=== PATIENT | male | born 1960 | race Caucasian/White ===

== ENCOUNTER 2017-03-04 16:27 | Inpatient (IN) | payer MEDICARE ==
[~2017-03-04] VITALS: Ht 167.6 cm; Wt 94.4 kg
[~2017-03-04 16:27] MED LIST: CLON2TAB3 PO; METF1000 PO; PARO10TA26 PO
[2017-03-04] MEDS ORDERED: morphine 4 MG/ML VIAL IV STA (17:26)
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
[2017-03-04 17:37] LABS: ADD SCAN DIFF NO
[2017-03-04 17:40] LABS: BASOPHILS % 0.2 % (0.0-2.0); EOSINOPHILS % 0.1 % (0.0-7.0); HEMATOCRIT 51.6 % (42.0-52.0); HEMOGLOBIN 16.9 g/dl (14.0-18.0); LYMPHOCYTES # 1.5 10^3/ul (0.8-2.9); LYMPHOCYTES % 13.7 % (15.0-51.0); MEAN CORPUSCULAR HEMOGLOBIN 28.7 pg (29.0-33.0); MEAN CORPUSCULAR HGB CONC 32.8 g/dl (32.0-37.0); MEAN CORPUSCULAR VOLUME 87.8 fl (82.0-101.0); MEAN PLATELET VOLUME 9.7 fl (7.4-10.4); MONOCYTE # 1.1 10^3/ul (0.3-0.9); MONOCYTES % 9.9 % (0.0-11.0); NEUTROPHIL # 8.2 10^3/ul (1.6-7.5); NEUTROPHILS % 75.4 % (39.0-77.0); PLATELET COUNT 368 10^3/UL (140-415); RED BLOOD COUNT 5.88 10^6/ul (4.70-6.10); RED CELL DISTRIBUTION WIDTH 15.4 % (11.5-14.5); WHITE BLOOD COUNT 10.9 10^3/ul (4.8-10.8)
[2017-03-04 17:55] LABS: INR 0.92; PROTIME 12.4 Sec (12.2-14.2)
[2017-03-04 17:56] LABS: PARTIAL THROMBOPLASTIN TIME 28.2 Sec (25.0-35.0)
[2017-03-04] MEDS ORDERED: ACETAMINOPHEN 325 MG TAB PO PRN (18:00)
[2017-03-04] MEDS ORDERED: ONDANSETRON 4 MG INJ IV PRN (18:00)
[2017-03-04 18:04] LABS: ALBUMIN/GLOBULIN RATIO 1.42; BILIRUBIN,INDIRECT 0.5 mg/dl (0-1.1); BILIRUBIN,TOTAL 0.5 mg/dl (0.2-1.3); CALCIUM 9.5 mg/dl (8.4-10.2); CREATININE 1.04 mg/dl (0.61-1.24); POTASSIUM 3.6 mmol/L (3.5-5.1); TOTAL PROTEIN 8.5 g/dl (6.1-8.1)
--- NOTE | 2017-03-04 18:10 | RADRPT ---
PROCEDURE: XR Chest. CLINICAL INDICATION: Chest pain. TECHNIQUE: Single frontal view of the chest was obtained. COMPARISON: Chest x-ray 05/18/2016. FINDINGS: The soft tissues are normal. There are degenerative osteophytes in the thoracic spine. The left ve ntricle is mildly enlarged. The cardiomediastinal silhouette and hilar structures are normal. The p ulmonary vasculature is normal. There is a left-sided aorta. There is a suboptimal inspiration with compressive atelectasis in the bases of the lungs. The left costophrenic angle is obscured. The r ight costophrenic angle is normal. IMPRESSION: 1. Left ventricular enlargement. 2. Spondylosis of the thoracic spine. 3. Suboptimal inspiration with compressive atelectasis in the bases of the lungs. RPTAT:AAJJ Physician Theresa Date Time Electronically viewed and signed by Physician Theresa on 03/04/2017 18:10 /
[2017-03-04 18:16] LABS: TROPONIN-I 0.016 ng/ml (0.00-0.12)
[2017-03-04] MEDS ORDERED: ASPIRIN 325 MG TAB PO STA (18:16)
[2017-03-04] MEDS ORDERED: NITROGLYCERIN 2% 1 GM OINT PKT TD STA (18:16)
[2017-03-04 18:30] VITALS: TEMP 97.7
[2017-03-04 18:34] LABS: THYROID STIMULATING HORMONE 0.836 MIU/L (0.465-4.680)
[2017-03-04] MEDS ORDERED: clonAZEPAM 0.5 MG TAB PO ONE (19:00)
[2017-03-04 20:03] VITALS: BP 165/92; RESP 18
[2017-03-04 20:18] VITALS: PULSE 82
[2017-03-04 20:30] VITALS: Ht 167.6 cm; Wt 94.4 kg
--- NOTE | 2017-03-04 20:46 | HP ---
DATE OF ADMISSION: 03/04/2017 CHIEF COMPLAINT: Left arm pain and feeling very sick. HISTORY OF PRESENT ILLNESS: This 57-year-old patient with diabetes, hypertension, hypercholesterolemia and bipolar as well as history of chronic pain from C-spine disk disease and left humeral fracture presented in the office with increasingly severe left arm pain over the past 2 to 3 days so that his usual oxycodone was not controlling the pain. The patient also reports that he was more weak, short of breath, sweaty and tremulous. However, patient attributed the symptoms to the fact that he had an episode of diarrhea with some nausea and vomiting about 3 to 4 days ago. He also attributed the left arm pain to the fact that we discontinued Dilaudid last week to see if patient' s pain can be controlled on oxycodone alone. In the office, the patient's blood pressure was at 185/105, and he had an abnormal EKG with T-wave inversion in the anterolateral leads, and the patient was sent to [facility] for possible admit for rule out myocardial infarction. PAST MEDICAL HISTORY: 1. Bipolar. 2. General anxiety disorder. 3. Diabetes. 4. Hypertension. 5. History of alcoholism. 6. Deafness from recent trauma. 7. Cervical spine degenerative disk disease. 8. Lumbar spine degenerative disk disease. 9. Left humeral fractures x2 one year apart. 10. Hypothyroidism 11. Hypogonadism ALLERGIES: NKDA. MEDICATIONS ON ADMISSION: Include 1. Metformin 1000 mg p.o. b.i.d. 2. Glimepiride 1mg p.o. b.i.d. 3. Clonazepam 2 mg p.o. t.i.d. 4. [place] 300 mg p.o. b.i.d. 5. Paroxetine 20 mg p.o. daily. 6. Oxycodone 30 mg 2 p.o. b.i.d. 7. Clonidine 0.1 mg p.o. b.i.d. 8. Synthroid 25mcg p.o. q.d. 9. Haloperidol 1mg p.o. b.i.d. 10. Depotestosterone 200mg injection q. month. FAMILY HISTORY: Noncontributory. SOCIAL HISTORY: The patient is deaf and lives alone in an assisted living facility. He is able to drive. PHYSICAL EXAMINATION: GENERAL: Well-developed, well-nourished, tremulous male, mildly diaphoretic. VITAL SIGNS: Temperature on arrival in ER was 98.2, blood pressure 182/94, pulse 100, respiration rate 18, O2 saturation 96% to 100% on room. HEENT: Pupils equally round, reactive to light. Anicteric sclerae. Oropharynx clear. NECK: No jugular venous distention, no nodes, no goiter. LUNGS: Clear to auscultation. CARDIAC: Regular rate and rhythm. Normal S1, S2. ABDOMEN: Active bowel sounds. Soft, nondistended, nontender. EXTREMITIES: No clubbing, cyanosis or edema. Left arm with decreased range of motion at the shoulder. LABORATORY DATA: WBC 10.9, hemoglobin 16.9, hematocrit 51.6, platelet count 368 ,000. Sodium 136, potassium 3.6, BUN 27, creatinine 1.04, glucose 280,000. ProBNP is 878. Total protein 8.5, albumin 5.5, globulin 3.5. Troponin is 0.016. IMAGING: Chest x-ray shows left ventricular enlargement, spondylosis of thoracic spine. There is suboptimal inspiration with compressive atelectasis in the bases of the lungs. ELECTROCARDIOGRAM: Sinus tachycardia with a ventricular rate of 108, right ventricular hypertrophy, nonspecific T-wave changes. No acute ST segment elevation or depression. ASSESSMENT AND PLAN: 1. Left arm pain with abnormal electrocardiogram. Especially with the increased blood pressure and tachycardia and elevated proBNP, will admit patient for rule out SD protocol and obtain echocardiogram to check for possible heart failure. I will also consult Cardiology for further workup. 2. Other problems stable. Continue medication for diabetes and bipolar and chronic pain. Dictated By: LEIGHTON SHETH MD DP/NYDIA Conf#: [id number] DID#: [id number] MTDD
[2017-03-04] MEDS: morphine 2 MG INJ IV PRN (23:00)
[2017-03-04] MEDS ORDERED: GLUCOSE GEL 15 GRAM TUBE PO PRN ×2 (23:30)
[2017-03-04] MEDS ORDERED: GLUCAGON 1 MG INJ IM PRN (23:30)
[2017-03-04] MEDS ORDERED: DEXTROSE 50% 50 ML SYRINGE IV PRN ×2 (23:30)
[2017-03-04] MEDS ORDERED: GLUCOSE GEL 15 GRAM TUBE BUCCAL PRN (23:30)
[2017-03-05] VITALS (11 sets, daily range): BP systolic 94–153; BP diastolic 52–84; PULSE 66–110; RESP 17–20
[2017-03-05] MEDS ORDERED: ACETAMINOPHEN 325 MG TAB PO PRN
[2017-03-05] MEDS ORDERED: ONDANSETRON 4 MG INJ IV PRN
[2017-03-05] MEDS ORDERED: ZOLPIDEM 5 MG TAB PO PRN
[2017-03-05] MEDS: INSULIN ASPART [NOVOLOG] 3 ML PEN SC SCH ×5 (00:26→20:10)
[2017-03-05 00:30] LABS: TROPONIN-I 0.016 ng/ml (0.00-0.12)
[2017-03-05 00:31] LABS: CK-MB 2.37 ng/ml (0.0-2.4)
[2017-03-05] MEDS: ACCU-CHEK XX SCH (02:40)
[2017-03-05] MEDS: morphine 2 MG INJ IV PRN ×5 (04:31→22:23)
[2017-03-05] MEDS: clonAZEPAM 0.5 MG TAB PO SCH ×3 (06:23→21:50)
[2017-03-05] MEDS: LEVOTHYROXINE 25 MCG TAB PO SCH (06:23)
[2017-03-05 07:41] LABS: ADD SCAN DIFF NO
[2017-03-05 07:51] LABS: BASOPHILS % 0.4 % (0.0-2.0); EOSINOPHILS % 0.4 % (0.0-7.0); HEMATOCRIT 46.9 % (42.0-52.0); HEMOGLOBIN 15.4 g/dl (14.0-18.0); LYMPHOCYTES # 2.4 10^3/ul (0.8-2.9); LYMPHOCYTES % 26.6 % (15.0-51.0); MEAN CORPUSCULAR HEMOGLOBIN 29.3 pg (29.0-33.0); MEAN CORPUSCULAR HGB CONC 32.8 g/dl (32.0-37.0); MEAN CORPUSCULAR VOLUME 89.2 fl (82.0-101.0); MEAN PLATELET VOLUME 9.8 fl (7.4-10.4); MONOCYTE # 0.8 10^3/ul (0.3-0.9); NEUTROPHIL # 5.6 10^3/ul (1.6-7.5); NEUTROPHILS % 62.6 % (39.0-77.0); PLATELET COUNT 287 10^3/UL (140-415); RED BLOOD COUNT 5.26 10^6/ul (4.70-6.10); RED CELL DISTRIBUTION WIDTH 15.1 % (11.5-14.5); WHITE BLOOD COUNT 8.9 10^3/ul (4.8-10.8)
[2017-03-05] MEDS ORDERED: metFORMIN 500 MG TAB PO SCH (08:00)
[2017-03-05] MEDS ORDERED: glyBURIDE 5 MG TAB PO SCH (08:00)
[2017-03-05 08:11] LABS: ALBUMIN 4.5 g/dl (3.3-4.9); ALBUMIN/GLOBULIN RATIO 1.8; BILIRUBIN,INDIRECT 0.6 mg/dl (0-1.1); BILIRUBIN,TOTAL 0.6 mg/dl (0.2-1.3); CALCIUM 9.3 mg/dl (8.4-10.2); CREATININE 0.81 mg/dl (0.61-1.24); POTASSIUM 4.1 mmol/L (3.5-5.1)
[2017-03-05] MEDS: oxyCODONE (CR) 15 MG TAB [oxyCONTIN] PO SCH ×2 (08:11→20:05)
[2017-03-05] MEDS: LITHIUM CARBONATE 300 MG CAP PO SCH ×3 (08:11→20:05)
[2017-03-05] MEDS: HALOPERIDOL 1 MG TAB PO SCH ×2 (08:12→20:05)
[2017-03-05] MEDS: LISINOPRIL 5 MG TAB PO SCH (08:12)
[2017-03-05] MEDS: PAROXETINE 20 MG TAB PO SCH (08:12)
[2017-03-05] MEDS: metFORMIN 500 MG TAB PO SCH ×2 (08:13→17:14)
[2017-03-05] MEDS: GLIMEPIRIDE 2 MG TAB PO SCH (08:13)
[2017-03-05 08:38] LABS: CK-MB 1.55 ng/ml (0.0-2.4); CREATINE KINASE 191 IU/L (23-200); TROPONIN-I < 0.012 ng/ml (0.00-0.12)
[2017-03-05] MEDS ORDERED: clonAZEPAM 0.5 MG TAB PO SCH (09:00)
[2017-03-05] MEDS ORDERED: LORAZEPAM 2 MG INJ IV PRN (09:00)
[2017-03-05] MEDS ORDERED: PAROXETINE 10 MG TAB PO SCH (09:00)
[2017-03-05] MEDS ORDERED: LITHIUM CARBONATE 300 MG CAP PO SCH (09:00)
[2017-03-05] MEDS ORDERED: LORAZEPAM 1 MG TAB PO PRN (12:00)
--- NOTE | 2017-03-05 13:36 | RADRPT ---
Echocardiogram Report Patient Name: SELENE CLAY Gender: Male Date: 1960 Study Date: 05-Mar-2017 Finishing Lab Technician: Keisha Llamas [facility] Location: 5552 Ref. Physician: BRADY GALVAN Quality: Adequate Procedures: Transthoracic echocardiogram with complete 2D, M-Mode, and doppler examination. Indications: Chest Pain. 2D/M Mode Doppler Measurement Value Normal Ranges Measurement Value Normal Ranges LVIDd 2D 5.0 3.5 - 5.6 cm MARY ANNE Vmax 1.2 cm2 LVIDs 2D 2.3 2.1 - 4.1 cm MARY ANNE VTI 1.6 cm2 FS 2D 54.0 % AV Mean Shahriar 1.6 m/sec LVPWd 2D 1.0 0.6 - 1.1 cm AV Mean PG 14.0 mmHg IVSd 2D 1.2 0.6 - 1.1 cm AV Peak Shahriar 2.8 m/sec IVS/LVPW 2D 1.2 AV Peak PG 31.0 mmHg AoR Diam 2D 2.6 2.0 - 3.7 cm AV VTI 43.1 cm LA/Ao 2D 1 0 - 1 LVOT Mean Shahriar 0.7 m/sec EDV 2D 124.0 cm3 LVOT Mean PG 3.0 mmHg ESV 2D 12.0 cm3 LVOT Peak Shahriar 1.0 m/sec LA Dimen 2D 3.5 2.3 - 4.0 cm LVOT Peak PG 4.0 mmHg LVOT Diam 2.1 cm LVOT VTI 20.3 cm LVOT Area 3.5 cm2 MV E Peak Shahriar 0.5 m/sec MV A Peak Shahriar 0.8 m/sec MV E/A 0.7 MV Decel Time 158 msec MV E/A 0.7 TR Peak Shahriar 1.9 m/sec TR Peak PG 15.0 mmHg RVSP 18.0 mmHg Findings Left Ventricle: Normal left ventricular systolic function. Normal left ventricular cavity size. Mild concentric left ventricular hypertrophy. Ejection fraction is visually estimated at 65 %. Tissue Doppler/Mitral Doppler indices are consistent with impaired relaxation (Stage I diastolic dysfunction). Right Ventricle: Normal right ventricular size. Normal right ventricular systolic function. Left Atrium: The left atrium is normal in size. Right Atrium: The right atrium is normal in size. Mitral Valve: Mitral valve leaflets appear mildly thickened. Mild mitral annular calcification. Trace mitral regurgitation. Aortic Valve: Mild aortic stenosis. Aortic valve Max velocity 2.78 m/sec. Max PG 31.00 mmHg. Mean PG 14.00 mmHg. Aortic valve area 1.60 cm2. Aortic cusps appear mildly calcified. No aortic regurgitation. Tricuspid Valve: Tricuspid valve not well visualized. Estimated peak PA systolic pressure 18 mmHg. There is trace tricuspid regurgitation. Pulmonic Valve: Normal pulmonic valve appearance. Pericardium: Normal pericardium with no significant pericardial effusion. Aorta: Normal aortic root. IVC: Normal size and normal respiratory collapse consistent with normal right atrial pressure. Conclusions 1.Normal left ventricular systolic function. Normal left ventricular cavity size. Mild concentric left ventricular hypertrophy. Ejection fraction is visually estimated at 65 %. Tissue Doppler/Mitral Doppler indices are consistent with impaired relaxation (Stage I diastolic dysfunction). 2.Mitral valve leaflets appear mildly thickened. Mild mitral annular calcification. Trace mitral regurgitation. 3.Mild aortic stenosis. Aortic valve Max velocity 2.78 m/sec. Max PG 31.00 mmHg. Mean PG 14.00 mmHg. Aortic valve area 1.60 cm2. Aortic cusps appear mildly calcified. No aortic regurgitation. 4.Tricuspid valve not well visualized. Estimated peak PA systolic pressure 18 mmHg. There is trace tricuspid regurgitation. 5.Normal pulmonic valve appearance. 6.Normal pericardium with no significant pericardial effusion. Electronically Signed By: Marilee Engel 05-Mar-2017 13:35:39 -0700 Patient Name: SELENE CLAY Study Date: 05-Mar-2017 [id number]
--- NOTE | 2017-03-05 17:44 | RADRPT ---
Vent Rate: 70 bpm RR Interval: 0 msec OR Interval: 0 msec QRS Duration: 82 msec QT Interval: 498 msec QTC Interval: 537 msec P-R-T [place]: 17 - -23 - 108 degrees Normal sinus rhythm Left atrial enlargement T wave abnormality, consider lateral ischemia Prolonged QT Abnormal ECG Electronically Signed By: Dheeraj Fenton [id number]
[2017-03-05] MEDS ORDERED: SOD CHLORIDE 0.9% 500 ML IV ONE (21:00)
--- NOTE | 2017-03-05 21:38 | PN ---
DATE: 03/05/2017 SUBJECTIVE: The patient reports that his left arm pain is relieved with the morphine IV but not as well as the IV or p.o. Dilaudid. OBJECTIVE: VITAL SIGNS: Temperature 98.2, blood pressure 97/56, pulse 76, respiration rate 17, O2 saturation 9 5% on room air. HEENT: Pupils equally round, reactive to light. Oropharynx clear. CHEST: Lungs are clear to auscultation. CARDIAC: Regular rate and rhythm. Normal S1, S2. ABDOMEN: Active bowel sounds. Soft, nondistended, nontender. EXTREMITIES: No clubbing, cyanosis or edema. Left arm with decreased range of motion at the should er. LABORATORY DATA: WBC 8.9, hemoglobin 15.4, hematocrit 46.9, platelet count 287,000. Sodium 136, po tassium 4.1, chloride 103, bicarbonate 27, BUN 26, creatinine 0.81, glucose 231. ProBNP is down to 463 today. Total protein 7.0. Albumin 4.5, globulin 2.5. Free T4 is 0.91. The patient's serial t roponins were recorded as 0.016 and 0.012. His chest x-ray showed left ventricular enlargement with spondylosis of the thoracic spine and compr ession atelectasis in the bases of the lungs. His EKG read as normal sinus rhythm, left atrial enlargement, T-wave abnormalities, consider lateral ischemia, prolonged QT interval and abnormal EKG. The echocardiogram shows normal left ventricular systolic function, normal left ventricular cavity s ize, mild concentric left ventricular hypertrophy, ejection fraction estimated at 65%, and there is evidence of impaired relaxation consistent with stage I diastolic dysfunction. Mildly thickened pavan ral valve leaflets and trace mitral regurgitation. There is mild aortic stenosis without aortic reg urgitation. There is trace tricuspid regurgitation with normal pulmonic valve appearance. ASSESSMENT AND PLAN: Left arm pain, rule out for myocardial infarction, but patient still has abnor mal EKG and mildly abnormal echocardiogram. Will check with Cardiology regarding possibly doing str ess test, particularly since patient was going to schedule for a left neck and shoulder surgery as a n outpatient, and with an abnormal electrocardiogram, I would like to have a stress test for cardiac clearance purposes as well as to rule out ischemic disease. Dictated By: LEIGHTON SHETH MD DP/NTS Conf#: [id number] [facility]#: [id number]
[2017-03-06] VITALS (11 sets, daily range): BP systolic 85–127; BP diastolic 52–73; PULSE 44–78; RESP 18–20
[2017-03-06] MEDS: ACCU-CHEK XX SCH (02:00)
[2017-03-06] MEDS: morphine 2 MG INJ IV PRN ×4 (02:41→16:25)
[2017-03-06] MEDS: clonAZEPAM 0.5 MG TAB PO SCH ×2 (06:40→14:38)
[2017-03-06] MEDS: LEVOTHYROXINE 25 MCG TAB PO SCH (06:40)
[2017-03-06] MEDS: GLIMEPIRIDE 2 MG TAB PO SCH (07:30)
--- NOTE | 2017-03-06 07:54 | CONS ---
Date/Time of Note Date/Time of Note DATE: 03/06/17 TIME: 07:46 Assessment/Plan Assessment/Plan Chief Complaint/Hosp Course 1) Atypical chest pain 2) EKG abnormalities 3) Preserved LV function 4) Mild 5) HTN 6) preoperative risk assessment 7) DM Problems: Additional Assessment/Plan 1) lexiscan stress test 2) Lipid panel 3) Statin 4) no asa in anticipation of surgery 5) dw patient Consultation Date/Type/Reason Admit Date/Time Mar 05, 2017 at 16:30 Date of Consultation: Mar 06, 2017 Type of Consultation: cv Reason for Consultation chest pain Referring Provider: LEIGHTON SHETH MD Hx of Present Illness patient admitted with uncontrollable left arm pain, also reports chest pain, worse w inspiration, no sob, sedentary, found to have EKG abnormalities. Eyes: no complaints ENT: no complaints Respiratory: no complaints Cardiovascular: chest pain Gastrointestinal: diarrhea Musculoskeletal: neck pain, restricted range of motion Neurologic: no complaints Past Medical History Medical History: diabetes, hypertension Family History Significant Family History: hypertension Social History Alcohol Use: sober Smoking Status: Former smoker Drug Use: none Exam/Review of Systems Vital Signs Vitals Vital Signs Date Time Temp Pulse Resp B/P Pulse Ox O2 Delivery O2 Flow Rate FiO2 03/06/17 06:23 44 03/06/17 05:00 98.0 20 127/73 98 Room Air 03/04/17 17:22 0 Intake and Output 03/05/17 03/05/17 03/06/17 15:00 23:00 07:00 Intake Total 1600 ml 800 ml Balance 1600 ml 800 ml Exam Constitutional: alert, oriented Head: atraumatic, normocephalic Neck: supple Respiratory: clear to auscultation Cardiovascular: murmurs/extra sounds, regular rate and rhythm Gastrointestinal: soft Musculoskeletal: nl extremities to inspection Extremities: normal pulses Results Result Diagram: 03/05/17 0710 03/05/17 0710 Results 24 hrs Laboratory Tests Test 03/05/17 08:07 03/05/17 12:58 03/05/17 17:13 03/05/17 20:08 Bedside Glucose 219 230 H 168 157 Medications Medications Current Medications Morphine Sulfate (morphine) 2 mg Q4H PRN IV PAIN Last administered on 03/06/17t 06:41; Admin Dose 2 MG; Start 03/04/17 at 23:00 Diagnostic Test (Pha) (Accu-Chek) 1 ea 02 XX Last administered on 03/05/17 02: 40; Admin Dose 1 EA; Start 03/05/17 at 02:00 Miscellaneous Information 1 ea NOTE XX ; Start 03/04/17 at 23:30 Glucose (Glutose) 15 gm Q15M PRN PO DECREASED GLUCOSE; Start 03/04/17 at 23:30 Glucose (Glutose) 22.5 gm Q15M PRN PO DECREASED GLUCOSE; Start 03/04/17 at 23: 30 Dextrose (D50w Syringe) 25 ml Q15M PRN IV DECREASED GLUCOSE; Start 03/04/17 at 23:30 Dextrose (D50w Syringe) 50 ml Q15M PRN IV DECREASED GLUCOSE; Start 03/04/17 at 23:30 Glucagon (Glucagen) 1 mg Q15M PRN IM DECREASED GLUCOSE; Start 03/04/17 at 23:30 Glucose (Glutose) 15 gm Q15M PRN BUCCAL DECREASED GLUCOSE; Start 03/04/17 at 23 :30 Acetaminophen (Tylenol Tab) 650 mg Q6H PRN PO PAIN AND OR ELEVATED TEMP; Start 03/05/17 at 00:00 Ondansetron HCl (Zofran Inj) 4 mg Q6H PRN IV NAUSEA AND/OR VOMITING Last administered on 03/05/17 16:42; Admin Dose 4 MG; Start 03/05/17 at 00:00 Oxycodone HCl (Oxycontin) 30 mg BID PO Last administered on 03/05/17 20:05; Admin Dose 30 MG; Start 03/05/17 at 09:00 Lisinopril (Zestril) 5 mg DAILY PO Last administered on 03/05/17 08:12; Admin Dose 5 MG; Start 03/05/17 at 09:00 Clonazepam (Klonopin) 2 mg Q8 PO Last administered on 03/06/17 06:40; Admin Dose 2 MG; Start 03/05/17 at 06:00 Clonidine (Catapres) 0.1 mg TID PO Last administered on 03/05/17 08:12; Admin Dose 0.1 MG; Start 03/05/17 at 09:00 Zolpidem Tartrate (Ambien) 10 mg HS PRN PO INSOMNIA; Start 03/05/17 at 00:00 [place] Carbonate ([place] Carbonate) 300 mg TID PO Last administered on 20:05; Admin Dose 300 MG; Start 03/05/17 at 09:00 Levothyroxine Sodium (Synthroid) 25 mcg DAILY@06 PO Last administered on 06:40; Admin Dose 25 MCG; Start 03/05/17 at 06:00 Paroxetine HCl (Paxil) 20 mg DAILY PO Last administered on 03/05/17 08:12; Admin Dose 20 MG; Start 03/05/17 at 09:00 Haloperidol (Haldol) 1 mg BID PO Last administered on 03/05/17 20:05; Admin Dose 1 MG; Start 03/05/17 at 09:00 Lorazepam (Ativan) 1 mg Q8H PRN PO ANXIETY/AGITATION; Start 03/05/17 at 12:00 Procedures Procedures EKG: Jacinta GOMEZ LEON I. MD Mar 06, 2017 07:54
[2017-03-06] MEDS: metFORMIN 500 MG TAB PO SCH ×2 (08:00→16:23)
[2017-03-06] MEDS: LISINOPRIL 5 MG TAB PO SCH (08:33)
[2017-03-06] MEDS: oxyCODONE (CR) 15 MG TAB [oxyCONTIN] PO SCH (08:33)
[2017-03-06] MEDS: HALOPERIDOL 1 MG TAB PO SCH (08:33)
[2017-03-06] MEDS: LITHIUM CARBONATE 300 MG CAP PO SCH ×2 (08:34→14:38)
[2017-03-06] MEDS: PAROXETINE 20 MG TAB PO SCH (08:35)
[2017-03-06] MEDS: INSULIN ASPART [NOVOLOG] 3 ML PEN SC SCH ×3 (08:38→16:32)
[2017-03-06 10:39] LABS: CHOL/HDL RATIO 3.2 RATIO
[2017-03-06] MEDS ORDERED: REGADENOSON 0.4 MG/5 ML SYG ONE (12:56)
--- NOTE | 2017-03-06 15:05 | RADRPT ---
PROCEDURE: Lexiscan myocardial perfusion study CLINICAL INDICATION: 57 -year-old patient complaining of chest pain. TECHNIQUE: Lexiscan 0.4 mg intravenously separate acquisition gated myocardial perfusion SPECT usi ng Tc 99m Myoview 31.4 mCi intravenously at stress and Tc-99m Myoview, 10.2 mCi intravenously at res t was performed using the rest/stress sequence. Poststress Myoview SPECT images were obtained in th e supine position. COMPARISON: No prior studies. FINDINGS: Perfusion images reveal no evidence of perfusion defects. Lexiscan post stress gated SPECT images demonstrate no wall motion abnormalities. IMPRESSION: 1. No evidence of perfusion defects. 2. No definite wall motion abnormalities. 3. The left ventricle ejection fraction at stress is 43%. A call report was made to Dr. Verdugo at 03:00 p.m. on March 06, 2017. RPTAT: HH .Tracee Olivier MD, MD Date Time Electronically viewed and signed by .Tracee Olivier MD, on 03/06/2017 15:05 .L/
--- NOTE | 2017-03-06 16:17 | ECORPT ---
DATE OF SERVICE: 03/06/2017 INDICATIONS: Chest pain. PROCEDURE: The patient was attached to a continuous EEG and blood pressure ____ saturation monitori ng. Subsequently, 0.4 mg of Lexiscan was infused, which was followed by SPECT nuclear imaging. CLINICAL INFORMATION: Resting heart rate of 58, peak heart rate 62 beats per minute, resting blood pressure is 132/78, peak blood pressure 141/80. CLINICAL SYMPTOMS: None. RESTING EKG: Sinus rhythm, nonspecific ST-T changes. STRESS EKG: No significant changes. SUMMARY: CLINICAL: Nonischemic. EKG: Nonischemic. This will be followed by SPECT nuclear imaging. Dictated By: LEXA BECK/NYDIA Conf#: [id number] DID#: [id number]
[2017-03-06] MEDS ORDERED: CLON0.1T14 PO (16:27)
[2017-03-06] MEDS ORDERED: LEVO25TA53 PO (16:27)
[2017-03-06] MEDS ORDERED: METF500T PO (16:27)
[2017-03-06] MEDS ORDERED: GLIM2TAB47 PO (16:27)
[2017-03-06] MEDS ORDERED: ACET325T40 PO (16:27)
[2017-03-06] MEDS ORDERED: ATOR10TA65 PO (16:27)
--- NOTE | 2017-03-06 17:08 | DS ---
DATE OF ADMISSION: 03/05/2017 DATE OF DISCHARGE: 03/06/2017 DISCHARGE DIAGNOSES:. Atypical left arm pain with abnormal EKG. HOSPITAL COURSE: This is a 57-year-old male with multiple medical problems including diab etes mellitus, hypertension, hyperlipidemia, and bipolar affective disorder, presents in the office with left arm pain of several days' duration. His EKG showed T-wave inversion in the lateral leads and the patient was admitted for rule out myocardial infarction. His troponins serially were negati ve for acute ischemia. His 2D echocardiogram shows normal left ventricular systolic function with e jection fraction estimated at 65% and a stage I diastolic dysfunction with mild impaired relaxation of the left ventricles. However, since the patient's electrocardiogram continued to show T-wave abn ormality in the lateral leads, and the patient was due to schedule for left shoulder surgery, we obt ained a Lexiscan stress test for this patient to rule out ischemia as well as to evaluate for other causes of abnormal EKG. The Lexiscan was negative for ischemia with no evidence of perfusion defect s and the left ventricle ejection fraction at stress is 43%. The patient is discharged to home in f air condition. He still continues to have severe left arm pain, possibly due to his shoulder fractu re and cervical spine radiculitis while he was in the hospital which required treatment with morphin e in addition to his usual oxycodone. DISPOSITION: Discharged to home in fair condition. FOLLOWUP: The patient will follow up with Dr. Leighton Perez as scheduled. Dictated By: LEIGHTON HENRIQUEZ/NYDIA Conf#: [id number] DID#: [id number]
[2017-03-06] MEDS ORDERED: ATORVASTATIN 10 MG TAB PO SCH (21:00)
== END 2017-03-06 17:48 | disposition home or self-care (01) | DRG 556 ==
LOC: E/R 16:27 → MS4 17:53 → OBSVTOIN 03-05 16:30
PROVIDERS: ADMIT Internal Medicine; ATTEND Internal Medicine
DX: M79.602 Pain in left arm (principal); I10 Essential (primary) hypertension; F31.89 Other bipolar disorder; S42.92XA Fracture of left shoulder girdle, part unspecified, initial encounter for closed fracture; R07.89 Other chest pain; E11.9 Type 2 diabetes mellitus without complications; E78.5 Hyperlipidemia, unspecified; R94.31 Abnormal electrocardiogram [ECG] [EKG]; H91.90 Unspecified hearing loss, unspecified ear; Z87.891 Personal history of nicotine dependence; M54.12 Radiculopathy, cervical region
CPT/HCPCS: 36415; 71010; 78452; 80053; 80061; 82550; 82553; 82962; 83880; 84439; 84443; 84484; 85025; 85610; 85730; 93005; 93017; 93306; 96374; G0378; A9500; A9505; J1815; J2270; J2405; J2785; J7040

== ENCOUNTER 2017-06-30 10:12 | Emergency (ER) | payer MEDICARE ==
[~2017-06-30] VITALS: Ht 162.6 cm; Wt 80.0 kg
[~2017-06-30 10:12] MED LIST changes: +ACET325T40 PO; +ATOR10TA65 PO; +CLON0.1T14 PO; -CLON2TAB3 PO; +GLIM2TAB47 PO; +LEVO25TA53 PO; -METF1000 PO; +METF500T PO; -PARO10TA26 PO
[2017-06-30 10:19] VITALS: Ht 162.6 cm; Wt 80.0 kg
--- NOTE | 2017-06-30 12:39 | RADRPT ---
PROCEDURE: Ultrasound of the right upper extremity venous system. CLINICAL INDICATION: Right hand swelling.. TECHNIQUE: Brennan scale with and without compression, color doppler, spectral doppler of the venous system of the bilateral upper extremity was performed. Venous augmentation maneuvers were utilized. COMPARISON: No prior studies are available for comparison. FINDINGS: RIGHT: Jugular vein: Patent and compressible. Subclavian vein: Patent and compressible. Axillary vein: Patent and compressible. Brachial vein: Patent and compressible. Basilic vein: Patent and compressible. Cephalic vein: Patent and compressible. Soft tissues:Normal IMPRESSION: 1. No evidence of right upper extremity deep vein thrombosis. RPTAT: AACC Physician Kirt Date Time Electronically viewed and signed by Physician Kirt on 06/30/2017 12:39 /
--- NOTE | 2017-06-30 13:01 | RADRPT ---
PROCEDURE: XR Hand. CLINICAL INDICATION: Right hand pain. TECHNIQUE: Three views of the right hand were obtained. COMPARISON: 08/26/2013. FINDINGS: No acute fracture or dislocation is noted. Bone mineralization is normal. No significant soft tissu e swelling is seen. IMPRESSION: 1. No acute fracture or dislocation is seen. RPTAT: QQ .Mitch Renteria MD, Date Time Electronically viewed and signed by .Mitch Renteria MD, on 06/30/2017 13:00 .N/
--- NOTE | 2017-06-30 13:01 | RADRPT ---
PROCEDURE: XR Wrist. CLINICAL INDICATION: Right wrist pain TECHNIQUE: AP, lateral and oblique views of the right wrist were performed. COMPARISON: No prior studies are available for comparison. FINDINGS: No evidence of fracture, dislocation, or subluxation is seen. The bones appear well mineralized. The joint spaces are well preserved. There is no significant soft tissue swelling. IMPRESSION: 1. No acute fracture or dislocation. RPTAT: QQ .Mitch Renteria MD, Date Time Electronically viewed and signed by .Mitch Renteria MD, on 06/30/2017 13:01 .N/
--- NOTE | 2017-06-30 13:14 | RADRPT ---
PROCEDURE: CT Lumbar Spine. CLINICAL INDICATION: Trauma TECHNIQUE: The study was performed on a GE [address] scanner. Spiral axial 1 mm i mages were obtained through the lumbar spine and reformatted at 2.5 mm slice thickness. Sagittal and coronal reformations were created from the raw axial data. The images were reviewed on a PACS works tation. CTDI: 32.1 mGy DLP: 826 mGy-cm One or more of the following dose reduction techniques were used: Automated exposure control. Adjustment of the mA and/or kV according to patient size. Use of iterative reconstruction technique. COMPARISON: No prior studies are available for comparison. FINDINGS: The vertebral bodies demonstrate normal height and alignment. There is mild generalized osteopenia. There is mild calcification of the abdominal aorta without gross aneurysm. T12-L1: The disc and neuroforamina are unremarkable. L1-L2: The disc and neuroforamina are unremarkable. L2-L3: Small circumferential posterior disc protrusion measuring approximately 4 mm. The neural fora luz marina are patent at this level. L3-L4: The disc and neuroforamina are unremarkable. L4-L5: Small circumferential posterior disc protrusion measuring approximately 4 mm. The neural fora luz marina are patent at this level. L5-S1: The disc and neuroforamina are unremarkable. IMPRESSION: No trauma involving the lumbar spine. Mild degenerative disc disease as described above. Mild generalized osteopenia. Physician Hany Date Time Electronically viewed and signed by Physician Hany on 06/30/2017 13:14 ML/
--- NOTE | 2017-06-30 13:21 | RADRPT ---
PROCEDURE: CT Cervical Spine without contrast. CLINICAL INDICATION: Trauma. TECHNIQUE: The study was performed on a multislice multidetector CT scanner. Spiral axial 1 mm im ages were obtained through the cervical spine and reformatted at 2.5 mm slice thickness without cont rast. 1 or more of the following dose reduction techniques were utilized: Automated exposure contr ol, adjustment of the mA and/or kV according to patient's size, iterative reconstruction technique. Coronal and sagittal reformations were obtained. The images were reviewed on a PACS workstation. RADIATION DOSE: CTDIvol: 22.1 mGyDLP: 424.2 mGy-cm COMPARISON: No prior studies are available for comparison. FINDINGS: There is diffuse straightening the cervical spine without reversal of normal cervical lordosis. The vertebral body heights are maintained. There is no evidence of fracture or dislocation. The marro w density is within normal limits. There are minimal anterior osteophytes from C3-C5 with moderate n arrowing of the intervertebral disc space at C5-6. There are early discogenic endplate changes at th is level. The cervical canal is unremarkable. There is a no bone destruction or sclerosis. The claudine tiara soft tissues are unremarkable. No significant paraspinal soft tissue swelling. There is moder ate atherosclerosis of the bilateral carotid bulbs/proximal ICA. C2-3: The posterior margin of the disc, thecal sac and neural foramina are normal in appearance. C3-4: There is a broad-based 2 mm posterior disc/osteophyte complex. The thecal sac is patent. Ther e is mild bilateral facet and uncovertebral joint spondylosis. There is mild bilateral neural forami nal narrowing. C4-5: There is a Saddle-shaped 1-2 mm posterior disc/osteophyte complex. The thecal sac is patent. There is mild bilateral facet intervertebral joint spondylosis. There is mild bilateral neural komal inal narrowing. C5-6: There is a broad-based 2-3 mm posterior disc/osteophyte complex. The thecal sac thecal sac me asures 7.4 mm midline AP diameter. There is mild bilateral facet hypertrophy and moderate bilateral uncovertebral joint spondylosis. There is severe bilateral neural foraminal narrowing. C6-7: There is a 1-2 mm posterior disc/osteophyte complex. The thecal sac is patent. There is mild bilateral facet and uncovertebral joint spondylosis. There is moderate bilateral neural foraminal n arrowing. C7-T1: The posterior margin of the disc, thecal sac and neural foramina are normal in appearance. IMPRESSION: 1. No acute abnormality of the cervical spine. No evidence of fracture or dislocation. 2. Straightening of the cervical spine which may be related paraspinal muscle spasm versus position ing. 3. Moderate spondylosis at C5-6 with moderate central stenosis and severe bilateral neural foramina l narrowing at this level. RPTAT: HGAS .Trae Allan MD, MD Date Time Electronically viewed and signed by .Trae Allan MD, on 06/30/2017 13:21 .S/
--- NOTE | 2017-06-30 13:23 | RADRPT ---
PROCEDURE: CT Brain without contrast. CLINICAL INDICATION: Trauma TECHNIQUE: CT scan of the brain was performed on a multidetector high-resolution CT scan. Axial im aging was obtained of the brain without contrast administration. Coronal and sagittal reformatted i mages were obtained from the axial source images. Standard CT scan of the head without contrast prot ocols were performed. The total exam CTDI equals 43.38 mGy and the total exam DLP equals 720.23 mGy-cm. One or more of the following dose reduction techniques were used: - Automated exposure control. - Adjustment of the mA and/or kV according to patient size. Use of iterative reconstruction technique. COMPARISON: CT head without contrast 03/27/2013 FINDINGS: The ventricular system and peripheral CSF spaces are proportionate prominent consistent with mild to moderate generalized cerebral volume loss. Negative for intracranial masses hemorrhages or midline shift. There is moderate periventricular deep white matter changes that is nonspecific and consisten t with chronic microvascular ischemic disease. There is a wedge-shaped encephalomalacia involving th e posterior right cerebellum consistent with old infarct. Brennan-white matter junction is otherwise un remarkable. The bones of the calvarium are intact. The visualized paranasal sinuses are unremarkable . Small amount of fluid in the inferior left mastoid air cells. Mastoids are otherwise unremarkable. IMPRESSION: 1. Moderate generalized cerebral volume loss and nonspecific chronic microvascular ischemic disease . 2. Wedge-shaped encephalomalacia involving the posterior right cerebellum consistent with old infar ct. 3. Negative for intracranial masses hemorrhages or midline shift. 4. Small amount of fluid in the inferior left mastoids. No evidence of calvarial fracture. RPTAT:AAJJ Physician Winnie Date Time Electronically viewed and signed by Physician Winnie on 06/30/2017 13:22 BM/
[2017-06-30] MEDS ORDERED: HYDR-902 PO (14:41)
[2017-06-30] MEDS ORDERED: IBUP800T25 PO (14:41)
--- NOTE | 2017-06-30 14:49 | ERD ---
ER Documentation Chief Complaint Date/Time DATE: 06/30/17 TIME: 14:41 Chief Complaint FELL 10 DAYS AGO, SLIPPED,HAS RIGHT ARM PAIN HPI This a 57-year-old male who fell 10 days ago by slipping on a rug and fell and hit his head and got knocked unconscious for 10 minutes he states. He went to an outside ER and got evaluated and CAT scan was done which was negative. His events at home. The patient is complaining of chronic headaches since that time the occipital region with no nausea vomiting no memory loss no focal neurological complaints is complaining of pain in his neck and low back and his right arm specifically the right wrist and forearm which have some pain with movement as sharp better with rest that is has some swelling also to the right hand and dorsal aspect of the wrist. He saw his primary care physician who sent him here for evaluation. No focal neurological complaints ROS All systems reviewed and are negative except as per history of present illness. Medications Home Meds Active Scripts Ibuprofen* (Motrin*) 800 Mg Tab, 800 MG PO Q6H Y for PAIN AND OR ELEVATED TEMP, #30 TAB Prov:LAYO ALVAREZ DO 06/30/17 Hydrocodone/Acetaminophen (Luke 10-325 Tablet) 1 Each Tablet, 1 TAB PO Q6H Y for PAIN, #20 TAB Prov:LAYO ALVAREZ DO 06/30/17 Metformin Hcl (Glucophage) 500 Mg Tablet, 1000 MG PO BID WITH MEALS for 30 Days , TAB Prov:LEIGHTON SHETH MD 03/06/17 Levothyroxine Sodium* (Levothyroxine Sodium*) 25 Mcg Tablet, 25 MCG PO DAILY@06 for 30 Days, TAB Prov:LEIGHTON SHETH MD 03/06/17 Glimepiride* (Amaryl*) 2 Mg Tablet, 1 MG PO BID for 30 Days, TAB Prov:LEIGHTON SHETH MD 03/06/17 Acetaminophen (MAPAP) 325 Mg Tablet, 650 MG PO Q6H Y for PAIN AND OR ELEVATED TEMP for 30 Days, TAB Prov:LEIGHTON SHETH MD 03/06/17 Clonidine Hcl* (Catapres*) 0.1 Mg Tablet, 0.1 MG PO BID for 30 Days, TAB Prov:LEIGHTON SHETH MD 03/06/17 Atorvastatin (Atorvastatin) 10 Mg Tablet, 10 MG PO HS for 30 Days, TAB Prov:LEIGHTON SHETH MD 03/06/17 Allergies Allergies: Coded Allergies: No Known Allergies (Verified Allergy, Mild, 06/30/17) PMhx/Soc History of Surgery: Yes (L CATARACT) Anesthesia Reaction: No Hx Neurological Disorder: No Hx Respiratory Disorders: No Hx Cardiac Disorders: Yes (HTN) Hx Psychiatric Problems: Yes (Bipolar disorder) Hx Miscellaneous Medical Probl: No Hx Alcohol Use: Yes (Beer and scotch on occassion) Hx Substance Use: No Hx Tobacco Use: Yes Smoking Status: Never smoker FmHx Family History: No coronary disease Physical Exam Vitals Vital Signs Date Time Temp Pulse Resp B/P Pulse Ox O2 Delivery O2 Flow Rate FiO2 06/30/17 10:19 98.1 78 18 138/79 99 Physical Exam Const: Well-developed, well-nourished Head: Atraumatic, normocephalic Eyes: Normal Conjunctiva, PERRLA, EOMI, normal sclera, no nystagmus ENT: Normal External Ears, Nose and Mouth, moist mucus membranes. Neck: Full range of motion. No meningismus, no lymphadenopathy, tenderness to the midline cervical region C5-C6. Resp: Clear to auscultation bilaterally, no wheezing, rhonchi, rales Cardio: Regular rate and rhythm, no murmurs, S1 S2 present Abd: Soft, non tender x 4, non distended. Normal bowel sounds, no guarding or rebound, no pulsitile abdominal masses or bruits Skin: No petechiae or rashes, no ecchymosis , no maculopapular rash Back: Mild midline lumbar tenderness or flank tenderness] Ext: No cyanosis, slight edema to the right wrist and hand with mild tenderness to the dorsal wrist and hand FROM x 4, normal inspection, neurovascularly intact x 4 Neur: Awake and alert, STR 5/5 x 4, sensation intact x 4, no focal findings, cerebellum intact Psych: Normal Mood and Affect Procedures/MDM PROCEDURE: CT Brain without contrast. CLINICAL INDICATION: Trauma TECHNIQUE: CT scan of the brain was performed on a multidetector high- resolution CT scan. Axial imaging was obtained of the brain without contrast administration. Coronal and sagittal reformatted images were obtained from the axial source images. Standard CT scan of the head without contrast protocols were performed. The total exam CTDI equals 43.38 mGy and the total exam DLP equals 720.23 mGy- cm. One or more of the following dose reduction techniques were used: - Automated exposure control. - Adjustment of the mA and/or kV according to patient size. Use of iterative reconstruction technique. COMPARISON: CT head without contrast 03/27/2013 FINDINGS: The ventricular system and peripheral CSF spaces are proportionate prominent consistent with mild to moderate generalized cerebral volume loss. Negative for intracranial masses hemorrhages or midline shift. There is moderate periventricular deep white matter changes that is nonspecific and consistent with chronic microvascular ischemic disease. There is a wedge-shaped encephalomalacia involving the posterior right cerebellum consistent with old infarct. Brennan-white matter junction is otherwise unremarkable. The bones of the calvarium are intact. The visualized paranasal sinuses are unremarkable. Small amount of fluid in the inferior left mastoid air cells. Mastoids are otherwise unremarkable. IMPRESSION: 1. Moderate generalized cerebral volume loss and nonspecific chronic microvascular ischemic disease. 2. Wedge-shaped encephalomalacia involving the posterior right cerebellum consistent with old infarct. 3. Negative for intracranial masses hemorrhages or midline shift. 4. Small amount of fluid in the inferior left mastoids. No evidence of calvarial fracture. RPTAT:AAJJ Physician Winnie Date Time Electronically viewed and signed by Physician Winnie on 06/30/2017 13:22 BM/ CC: LAYO ALVAREZ DO PROCEDURE: CT Cervical Spine without contrast. CLINICAL INDICATION: Trauma. TECHNIQUE: The study was performed on a multislice multidetector CT scanner. Spiral axial 1 mm images were obtained through the cervical spine and reformatted at 2.5 mm slice thickness without contrast. 1 or more of the following dose reduction techniques were utilized: Automated exposure control, adjustment of the mA and/or kV according to patient's size, iterative reconstruction technique. Coronal and sagittal reformations were obtained. The images were reviewed on a PACS workstation. RADIATION DOSE: CTDIvol: 22.1 mGy DLP: 424.2 mGy-cm COMPARISON: No prior studies are available for comparison. FINDINGS: There is diffuse straightening the cervical spine without reversal of normal cervical lordosis. The vertebral body heights are maintained. There is no evidence of fracture or dislocation. The marrow density is within normal limits. There are minimal anterior osteophytes from C3-C5 with moderate narrowing of the intervertebral disc space at C5-6. There are early discogenic endplate changes at this level. The cervical canal is unremarkable. There is a no bone destruction or sclerosis. The paraspinal soft tissues are unremarkable. No significant paraspinal soft tissue swelling. There is moderate atherosclerosis of the bilateral carotid bulbs/proximal ICA. C2-3: The posterior margin of the disc, thecal sac and neural foramina are normal in appearance. C3-4: There is a broad-based 2 mm posterior disc/osteophyte complex. The thecal sac is patent. There is mild bilateral facet and uncovertebral joint spondylosis. There is mild bilateral neural foraminal narrowing. C4-5: There is a Saddle-shaped 1-2 mm posterior disc/osteophyte complex. The thecal sac is patent. There is mild bilateral facet intervertebral joint spondylosis. There is mild bilateral neural foraminal narrowing. C5-6: There is a broad-based 2-3 mm posterior disc/osteophyte complex. The thecal sac thecal sac measures 7.4 mm midline AP diameter. There is mild bilateral facet hypertrophy and moderate bilateral uncovertebral joint spondylosis. There is severe bilateral neural foraminal narrowing. C6-7: There is a 1-2 mm posterior disc/osteophyte complex. The thecal sac is patent. There is mild bilateral facet and uncovertebral joint spondylosis. There is moderate bilateral neural foraminal narrowing. C7-T1: The posterior margin of the disc, thecal sac and neural foramina are normal in appearance. IMPRESSION: 1. No acute abnormality of the cervical spine. No evidence of fracture or dislocation. 2. Straightening of the cervical spine which may be related paraspinal muscle spasm versus positioning. 3. Moderate spondylosis at C5-6 with moderate central stenosis and severe bilateral neural foraminal narrowing at this level. RPTAT: HGAS .Trae Allan MD, MD Date Time Electronically viewed and signed by .Trae Allan MD, MD on 06/30/2017 13: 21 .S/ CC: LAYO ALVAREZ DO PROCEDURE: CT Lumbar Spine. CLINICAL INDICATION: Trauma TECHNIQUE: The study was performed on a GE [address] scanner. Spiral axial 1 mm images were obtained through the lumbar spine and reformatted at 2.5 mm slice thickness. Sagittal and coronal reformations were created from the raw axial data. The images were reviewed on a PACS workstation. CTDI: 32.1 mGy DLP: 826 mGy-cm One or more of the following dose reduction techniques were used: Automated exposure control. Adjustment of the mA and/or kV according to patient size. Use of iterative reconstruction technique. COMPARISON: No prior studies are available for comparison. FINDINGS: The vertebral bodies demonstrate normal height and alignment. There is mild generalized osteopenia. There is mild calcification of the abdominal aorta without gross aneurysm. T12-L1: The disc and neuroforamina are unremarkable. L1-L2: The disc and neuroforamina are unremarkable. L2-L3: Small circumferential posterior disc protrusion measuring approximately 4 mm. The neural foramina are patent at this level. L3-L4: The disc and neuroforamina are unremarkable. L4-L5: Small circumferential posterior disc protrusion measuring approximately 4 mm. The neural foramina are patent at this level. L5-S1: The disc and neuroforamina are unremarkable. IMPRESSION: No trauma involving the lumbar spine. Mild degenerative disc disease as described above. Mild generalized osteopenia. Physician Hany Date Time Electronically viewed and signed by Physician Hany on 06/30/2017 13 :14 ML/ CC: LAYO ALVAREZ DO PROCEDURE: Ultrasound of the right upper extremity venous system. CLINICAL INDICATION: Right hand swelling.. TECHNIQUE: Brennan scale with and without compression, color doppler, spectral doppler of the venous system of the bilateral upper extremity was performed. Venous augmentation maneuvers were utilized. COMPARISON: No prior studies are available for comparison. FINDINGS: RIGHT: Jugular vein: Patent and compressible. Subclavian vein: Patent and compressible. Axillary vein: Patent and compressible. Brachial vein: Patent and compressible. Basilic vein: Patent and compressible. Cephalic vein: Patent and compressible. Soft tissues: Normal IMPRESSION: 1. No evidence of right upper extremity deep vein thrombosis. RPTAT: AACC Physician Kirt Date Time Electronically viewed and signed by Bon Sinclair Physician on 06/30/2017 12: 39 JH/ CC: LAYO ALVAREZ DO PROCEDURE: XR Hand. CLINICAL INDICATION: Right hand pain. TECHNIQUE: Three views of the right hand were obtained. COMPARISON: 08/26/2013. FINDINGS: No acute fracture or dislocation is noted. Bone mineralization is normal. No significant soft tissue swelling is seen. IMPRESSION: 1. No acute fracture or dislocation is seen. RPTAT: QQ .Mitch Renteria MD, MD Date Time Electronically viewed and signed by .Mitch Renteria MD, MD on 06/30/2017 13: 00 .N/ CC: LAYO ALVAREZ DO PROCEDURE: XR Wrist. CLINICAL INDICATION: Right wrist pain TECHNIQUE: AP, lateral and oblique views of the right wrist were performed. COMPARISON: No prior studies are available for comparison. FINDINGS: No evidence of fracture, dislocation, or subluxation is seen. The bones appear well mineralized. The joint spaces are well preserved. There is no significant soft tissue swelling. IMPRESSION: 1. No acute fracture or dislocation. RPTAT: QQ .Mitch Renteria MD, Date Time Electronically viewed and signed by .Mitch Renteria MD, MD on 06/30/2017 13: 01 .N/ CC: LAYO ALVAREZ DO She is having chronic headaches from concussion. We will have him follow up with Dr. Hannah Diagnosis: Primary Impression: Concussion Encounter type: initial encounter Loss of consciousness presence/duration: with LOC of 30 min or less Qualified Code: S06.0X1A - Concussion with loss of consciousness of 30 minutes or less, initial encounter Additional Impressions: Pain of right arm Neck pain Condition: Stable Patient Instructions: After a Concussion, Contusion, Back, Back And Neck Pain, General LAYO ALVAREZ DO Jun 30, 2017 14:49
== END 2017-06-30 15:10 | disposition home or self-care (01) ==
LOC: FTE 10:12
DX: S06.0X1A Concussion with loss of consciousness of 30 minutes or less, initial encounter (principal); S19.9XXA Unspecified injury of neck, initial encounter; I10 Essential (primary) hypertension; E11.9 Type 2 diabetes mellitus without complications; W01.0XXA Fall on same level from slipping, tripping and stumbling without subsequent striking against object, initial encounter; Y92.9 Unspecified place or not applicable; Z79.84 Long term (current) use of oral hypoglycemic drugs; Z87.891 Personal history of nicotine dependence
CPT/HCPCS: 70450; 72125; 72131; 93971

== ENCOUNTER 2017-07-19 12:16 | Emergency (ER) | payer MEDICARE ==
[~2017-07-19] VITALS: Ht 162.6 cm; Wt 95.5 kg
[~2017-07-19 12:16] MED LIST changes: +HYDR-902 PO; +IBUP800T25 PO
[2017-07-19 12:23] VITALS: Ht 162.6 cm; Wt 95.5 kg
[2017-07-19] MEDS ORDERED: HYDROCODONE/APAP (5/325) TAB PO ONE (13:00)
--- NOTE | 2017-07-19 13:56 | RADRPT ---
PROCEDURE: CT Brain without contrast. CLINICAL INDICATION: Pain, headache TECHNIQUE: Routine CT scan of the brain was performed on a high resolution multi detector scanner without intravenous contrast. One or more of the following dose reduction techniques were used: Auto mated exposure control; Adjustment of the mA and/or kV according to patient size; Use of iterative r econstruction technique. CTDI = 44 mGy. DLP = 720 mGy-cm. COMPARISON: CT brain 05/18/2016, 06/30/2017 FINDINGS: Hemorrhage: No evidence of intracranial hemorrhage. Acute ischemic changes: No evidence of acute ischemic changes. Mass effect: None. Parenchymal volume: Mild central parenchymal volume loss is evident. Ventricular system: Concordant with parenchymal volume. Chronic changes: Mild chronic-appearing microvascular ischemic changes of the supratentorial white m atter. 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 Atherosclerotic calcifications of t he cavernous portions of both internal carotid arteries are present. Extracranial soft tissues: Unremarkable. Calvarium: No fractures. Paranasal sinuses: Visualized paranasal sinuses are clear. Mastoid air cells: Visualized mastoid air cells are clear. IMPRESSION: No acute intracranial abnormalities. Mild chronic-appearing microvascular ischemic changes of the supratentorial white matter. 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 RPTAT: AADD .Rubén Glasgow MD, Date Time Electronically viewed and signed by .Rubén Glasgow MD, MD on 07/19/2017 13:55 .B/
[2017-07-19] MEDS ORDERED: HYDR-906 PO (14:20)
[2017-07-19] MEDS ORDERED: HC30CR25 TOP (14:20)
[2017-07-19] MEDS ORDERED: CETI10CA PO (14:20)
--- NOTE | 2017-07-19 14:29 | ERD ---
ER Documentation Chief Complaint Date/Time DATE: 07/19/17 TIME: 14:28 Chief Complaint C/O HEADCAHE X 1 WEEK , NO NEURO DEFICITS HPI This 57-year-old male complains of a headache for the last 2 weeks. History significant for slipping backwards on his head. 2 weeks he had normal CT. Get some relief with Atwood but headache returned once he finishes prescription. He denies any vomiting or visual changes. Scattered bruising. Patient is hearing impaired. ROS All systems reviewed and are negative except as per history of present illness. Medications Home Meds Active Scripts Cetirizine Hcl* (Zyrtec*) 10 Mg Capsule, 10 MG PO DAILY, #15 TAB.CHEW Prov:AGUS HYATT MD 07/19/17 Hydrocortisone* Topical (Hydrocortisone* Topical) 2.5%-28.3 Gm Cream..g., 1 APPLIC TOP BID, #1 TUB Prov:AGUS HYATT MD 07/19/17 Hydrocodone/Acetaminophen (Atwood 5-325 Tablet) 1 Each Tablet, 1 TAB PO Q6H Y for PAIN, #15 TAB Prov:AGUS HYATT MD 07/19/17 Ibuprofen* (Motrin*) 800 Mg Tab, 800 MG PO Q6H Y for PAIN AND OR ELEVATED TEMP, #30 TAB Prov:LAYO ALVAREZ DO 06/30/17 Hydrocodone/Acetaminophen (Atwood 10-325 Tablet) 1 Each Tablet, 1 TAB PO Q6H Y for PAIN, #20 TAB Prov:LAYO ALVAREZ DO 06/30/17 Metformin Hcl (Glucophage) 500 Mg Tablet, 1000 MG PO BID WITH MEALS for 30 Days , TAB Prov:LEIGHTON SHETH MD 03/06/17 Levothyroxine Sodium* (Levothyroxine Sodium*) 25 Mcg Tablet, 25 MCG PO DAILY@06 for 30 Days, TAB Prov:LEIGHTON SHETH MD 03/06/17 Glimepiride* (Amaryl*) 2 Mg Tablet, 1 MG PO BID for 30 Days, TAB Prov:LEIGHTON SHETH MD 03/06/17 Acetaminophen (MAPAP) 325 Mg Tablet, 650 MG PO Q6H Y for PAIN AND OR ELEVATED TEMP for 30 Days, TAB Prov:LEIGHTON SHETH MD 03/06/17 Clonidine Hcl* (Catapres*) 0.1 Mg Tablet, 0.1 MG PO BID for 30 Days, TAB Prov:LEIGHTON SHETH MD 03/06/17 Atorvastatin (Atorvastatin) 10 Mg Tablet, 10 MG PO HS for 30 Days, TAB Prov:LEIGHTON SHETH MD 03/06/17 Allergies Allergies: Coded Allergies: No Known Allergies (Verified Allergy, Mild, 06/30/17) PMhx/Soc Medical and Surgical Hx: pt denies Medical Hx, pt denies Surgical Hx History of Surgery: Yes (L CATARACT) Anesthesia Reaction: No Hx Neurological Disorder: No Hx Respiratory Disorders: No Hx Cardiac Disorders: Yes (HTN) Hx Psychiatric Problems: Yes (Bipolar disorder) Hx Miscellaneous Medical Probl: No Hx Alcohol Use: Yes (Beer and scotch on occassion) Hx Substance Use: No Hx Tobacco Use: Yes Smoking Status: Current every day smoker Physical Exam Vitals Vital Signs Date Time Temp Pulse Resp B/P Pulse Ox O2 Delivery O2 Flow Rate FiO2 07/19/17 12:23 98.1 109 18 166/83 98 Physical Exam Const: [], [id number]. Head: Atraumatic. Tender occipital without step-offs or deformities. Eyes: Normal Conjunctiva ENT: Normal External Ears, Nose and Mouth. Neck: Full range of motion..~ No meningismus. Resp: Clear to auscultation bilaterally Cardio: Regular rate and rhythm, no murmurs Abd: Soft, non tender, non distended. Normal bowel sounds Skin: No petechiae or rashes Back: No midline or flank tenderness Ext: No cyanosis, or edema Neur: Awake and alert Psych: Normal Mood and Affect Results 24 hrs Current Medications Medications (Trade) Dose Ordered Sig/Minnie Route PRN Reason Start Time Stop Time Status Last Admin Dose Admin Acetaminophen/ Hydrocodone Bitart (Atwood (5/325)) 1 tab ONCE ONCE PO 07/19/17 13:00 07/19/17 13:01 DC 07/19/17 13:01 Procedures/MDM Given headache 2 weeks post injury repeat CT was performed which was read as normal by the radiologist without new acute findings. Patient was given Atwood 5 mg of mouth. Patient presents with headache status post trauma likely postconcussive. There is no evidence of bleeding, fracture, neurologic deficit , bacterial infection. There is no evidence of extremity fracture. Patient was discharged home a short course of Atwood and primary care follow-up and return precautions. The patient was stable with no new complaints during the ER course. Clinically, there is no current evidence to suggest meningitis, sepsis, acute abdomen, pneumonia, acute coronary syndrome, pulmonary embolism, or any other emergent condition appearing to require further evaluation or hospitalization. The patient should certainly return for any new or worsening symptoms per the aftercare instructions. They should otherwise follow-up with her primary care doctor for reevaluation this week. Departure Diagnosis: Primary Impression: Concussion Encounter type: initial encounter Loss of consciousness presence/duration: with LOC of unspecified duration Qualified Code: S06.0X9A - Concussion with loss of consciousness, initial encounter Condition: Stable Patient Instructions: Concussion, Dermatitis, Non-Specific Additional Instructions: CT normal again. Likely concussion. Recheck for new symptoms or primary care doctor. AGUS HYATT MD Jul 19, 2017 14:29
[2017-07-19] MEDS ORDERED: MTF1000T PO (15:12)
[2017-07-19 15:15] VITALS: BP 156/80; PULSE 76; RESP 18; TEMP 97.8
== END 2017-07-19 15:07 | disposition home or self-care (01) ==
LOC: FTE 12:16
DX: S06.0X9A Concussion with loss of consciousness of unspecified duration, initial encounter (principal); I10 Essential (primary) hypertension; F17.210 Nicotine dependence, cigarettes, uncomplicated; R51 Headache; W18.40XA Slipping, tripping and stumbling without falling, unspecified, initial encounter; Y92.9 Unspecified place or not applicable; Z79.84 Long term (current) use of oral hypoglycemic drugs
CPT/HCPCS: 70450

== ENCOUNTER 2018-05-06 15:37 | Emergency (ER) | END 2018-05-06 21:43 | disposition home or self-care (01) ==

== ENCOUNTER 2018-05-12 17:25 | Inpatient (IN) | END 2018-05-19 14:15 | disposition home or self-care (01) | DRG 638 ==

== ENCOUNTER 2018-05-28 12:12 | Emergency (ER) | END 2018-05-28 15:58 | disposition home or self-care (01) ==

== ENCOUNTER 2018-05-31 05:47 | Emergency (ER) | END 2018-05-31 10:55 | disposition home or self-care (01) ==